=== PATIENT | female | born 1970 | race Asian ===

== ENCOUNTER 2023-01-24 06:41 | Emergency (ER) | payer BC ==
[~2023-01-24] VITALS: Ht 147.3 cm; Wt 70.8 kg
[2023-01-24 06:53] VITALS: BP_SYST 134; PULSE 90; RESP 18; TEMP 98.8; O2SAT 98
[2023-01-24 07:16] VITALS: BP_SYST 142; PULSE 85; RESP 20; TEMP 98.8; O2SAT 99
== END 2023-01-24 07:12 | disposition home or self-care (01) ==
LOC: SED 06:41
DX: H11.32 Conjunctival hemorrhage, left eye (principal); H57.12 Ocular pain, left eye; I10 Essential (primary) hypertension; Z79.899 Other long term (current) drug therapy
CPT/HCPCS: 99281

== ENCOUNTER 2023-11-20 20:53 | Emergency (ER) | payer BC ==
[~2023-11-20] VITALS: Ht 149.9 cm; Wt 70.3 kg
[2023-11-20 20:59] VITALS: BP_SYST 140; PULSE 102; RESP 20; TEMP 98.5; O2SAT 96
[2023-11-20 21:38] LABS: BASOPHILS # (AUTO) 0.1 K/uL (0.0-0.2); BASOPHILS % (AUTO) 0.8 % (0.0-2.0); EOSINOPHILS # (AUTO) 0.2 K/uL (0.0-0.4); EOSINOPHILS % (AUTO) 3.5 % (0.0-4.0); HEMATOCRIT 39.3 % (36-48); HEMOGLOBIN 13.5 g/dL (12.0-16.0); LYMPHOCYTES # (AUTO) 1.2 K/uL (1.0-5.5); LYMPHOCYTES % (AUTO) 18.7 % (20.5-51.5); MEAN CORPUSCULAR HEMOGLOBIN 31 pg (27-31); MEAN CORPUSCULAR HGB CONC 34 % (32-36); MEAN CORPUSCULAR VOLUME 90 fL (79.0-98.0); MONOCYTES # (AUTO) 0.4 K/uL (0.0-1.0); MONOCYTES % (AUTO) 6.6 % (1.7-9.3); NEUTROPHILS # (AUTO) 4.4 K/uL (1.8-7.7); NEUTROPHILS % (AUTO) 70.4 % (40.0-70.0); PLATELET COUNT (AUTO) 208 K/uL (130-430); RED BLOOD CELL COUNT(AUTO) 4.39 MIL/uL (4.2-6.2); RED CELL DISTRIBUTION WIDTH 13.2 % (9.0-15.0); WHITE BLOOD COUNT (AUTO) 6.3 K/uL (4.8-10.8)
[2023-11-20 21:58] LABS: ANION GAP 8 (5-15); CALCIUM 9.6 mg/dL (8.4-11.0); CARBON DIOXIDE 30 mmol/L (23-29); CHLORIDE 100 mmol/L (98-107); CREATININE 0.84 mg/dL (0.55-1.30); GFR AFRICAN AMERICAN 91 mL/min (>90); GLUCOSE 112 mg/dL (74-106); POTASSIUM 3.9 mmol/L (3.5-5.1); SODIUM SERUM 138 mmol/L (136-145); UREA NITROGEN, BLOOD 4 mg/dL (8-21)
[2023-11-20 22:06] LABS: GFR NON AFRICAN-AMERICAN 75 mL/min (>90)
[2023-11-21] MEDS ORDERED: IBUP-1969 PO (01:04)
[2023-11-21] MEDS ORDERED: OMEP40CA20 PO (01:04)
[2023-11-21] MEDS: KETOROLAC TROMETHAMINE 30 MG VIAL IVP ONE (01:09)
[2023-11-21 01:16] VITALS: BP_SYST 131; PULSE 110; RESP 12; TEMP 97.5; O2SAT 95
== END 2023-11-21 01:16 | disposition home or self-care (01) ==
LOC: SED 20:53
DX: R07.89 Other chest pain (principal); R00.0 Tachycardia, unspecified; E78.5 Hyperlipidemia, unspecified; I10 Essential (primary) hypertension; Z98.890 Other specified postprocedural states
CPT/HCPCS: 99285; 71045; 80048; 83880; 85025; 84484; 36415; 93005; 96374; J1885

== ENCOUNTER 2024-01-07 10:22 | Emergency (ER) | payer BC ==
[~2024-01-07] VITALS: Ht 149.9 cm; Wt 70.3 kg
[~2024-01-07 10:22] MED LIST: IBUP-1969 PO; OMEP40CA20 PO
[2024-01-07 10:26] VITALS: BP_SYST 171; PULSE 102; RESP 20; TEMP 98.3; O2SAT 97
[2024-01-07 11:26] LABS: BASOPHILS % (AUTO) 0.7 % (0.0-2.0); EOSINOPHILS # (AUTO) 0.1 K/uL (0.0-0.4); EOSINOPHILS % (AUTO) 1.9 % (0.0-4.0); HEMATOCRIT 37.3 % (36-48); HEMOGLOBIN 12.6 g/dL (12.0-16.0); LYMPHOCYTES # (AUTO) 1.3 K/uL (1.0-5.5); LYMPHOCYTES % (AUTO) 24.4 % (20.5-51.5); MEAN CORPUSCULAR HEMOGLOBIN 31 pg (27-31); MEAN CORPUSCULAR HGB CONC 34 % (32-36); MEAN CORPUSCULAR VOLUME 91 fL (79.0-98.0); MONOCYTES # (AUTO) 0.3 K/uL (0.0-1.0); MONOCYTES % (AUTO) 5.7 % (1.7-9.3); NEUTROPHILS # (AUTO) 3.7 K/uL (1.8-7.7); NEUTROPHILS % (AUTO) 67.3 % (40.0-70.0); PLATELET COUNT (AUTO) 191 K/uL (130-430); RED BLOOD CELL COUNT(AUTO) 4.11 MIL/uL (4.2-6.2); RED CELL DISTRIBUTION WIDTH 13.3 % (9.0-15.0); WHITE BLOOD COUNT (AUTO) 5.5 K/uL (4.8-10.8)
[2024-01-07 11:51] LABS: INR 0.9 (0.8-1.2); PROTHROMBIN TIME 9.9 SECS (9.5-12.5)
[2024-01-07 11:53] LABS: SERUM HCG (QUALITATIVE) NEGATIVE (NEGATIVE)
[2024-01-07 12:01] LABS: ALANINE AMINOTRANSFERASE 33 U/L (12-78); ALBUMIN 3.2 g/dL (3.4-4.8); ANION GAP 10 (5-15); ASPARTATE AMINOTRANSFERASE 17 U/L (10-37); BILIRUBIN,DIRECT 0.1 mg/dL (0.0-0.3); CALCIUM 8.8 mg/dL (8.4-11.0); CARBON DIOXIDE 25 mmol/L (23-29); CHLORIDE 103 mmol/L (98-107); CREATINE KINASE, TOTAL 85 U/L (26-192); FREE T4 (FREE THYROXINE) 0.8 ng/dL (0.6-1.6); GFR AFRICAN AMERICAN 96 mL/min (>90); GFR NON AFRICAN-AMERICAN 80 mL/min (>90); GLUCOSE 131 mg/dL (74-106); POTASSIUM 3.6 mmol/L (3.5-5.1); SODIUM SERUM 138 mmol/L (136-145); THYROID STIMULATING HORMONE 1.95 uIu/mL (0.34-4.82); TOTAL BILIRUBIN 0.7 mg/dL (0.0-1.0); TOTAL PROTEIN, SERUM 7.3 g/dL (6.4-8.3); UREA NITROGEN, BLOOD 10 mg/dL (8-21)
[2024-01-07] MEDS ORDERED: iohexoL 350 mgI/mL, 100 ML INFUS..BTL IV ONE (13:55)
[2024-01-07] MEDS ORDERED: IBUP-1969 PO (15:47)
[2024-01-07] MEDS ORDERED: HYDR-3917 PO (15:47)
[2024-01-07] MEDS ORDERED: TRAM50TA2 PO (16:52)
[2024-01-07 17:01] VITALS: BP_SYST 142; PULSE 88; RESP 16; O2SAT 98
== END 2024-01-07 17:00 | disposition home or self-care (01) ==
LOC: SED 10:22
DX: R07.89 Other chest pain (principal); M54.2 Cervicalgia; R51.9 Headache, unspecified; R42 Dizziness and giddiness; E78.5 Hyperlipidemia, unspecified; I10 Essential (primary) hypertension; Z79.899 Other long term (current) drug therapy; Z79.2 Long term (current) use of antibiotics
CPT/HCPCS: 99285; 70450; 71045; 80076; 80048; 82550; 84703; 83880; 84439; 84443; 85025; 85610; 85730; 84484; 36415; 93005; 71275; Q9967 ×2